=== PATIENT | female | born 1950 ===

== ENCOUNTER 2017-01-10 19:16 | Emergency (ER) | payer MEDICARE, OTHER ==
[2017-01-10 19:21] VITALS: RESP 16; TEMP 98.3; O2SAT 100
[2017-01-10 20:44] LABS: BASO # 0.1 K/uL (0.0-0.2); BASO % 1.2 % (0.0-2.0); EOS % 0.3 % (0.0-4.0); HEMATOCRIT 39.9 % (34.0-47.0); LYMPH # 1.2 K/uL (1.0-4.3); LYMPH % 13.3 % (20.0-40.0); MEAN CELL VOLUME 82.4 fl (81.0-99.0); MEAN CORPUSCULAR HEMOGLOBIN 26.6 pg (27.0-31.0); MEAN CORPUSCULAR HGB CONC 32.2 g/dL (33.0-37.0); MEAN PLATELET VOLUME 8.6 fl (7.2-11.7); MONO # 0.7 K/uL (0.0-0.8); MONO % 7.5 % (0.0-10.0); NEUT # 7.2 K/uL (1.8-7.0); NEUT % 77.7 % (50.0-75.0); RED CELL DISTRIBUTION WIDTH 14.1 % (11.5-14.5); WHITE BLOOD COUNT 9.3 K/uL (4.8-10.8)
[2017-01-10 20:59] LABS: ALB/GLOB RATIO 1.1 (1.0-2.1); ALKALINE PHOSPHATASE 83 U/L (38-126); ALT/SGPT 30 U/L (9-52); AST/SGOT 26 U/L (14-36); BILIRUBIN,TOTAL 0.4 mg/dl (0.2-1.3); BLOOD UREA NITROGEN 18 mg/dl (7-17); CALCIUM 10.2 mg/dL (8.4-10.2); CARBON DIOXIDE 27 mmol/L (22-30); CHLORIDE 101 mmol/L (98-107); GFR AFRICAN-AMERICAN > 60; GLUCOSE,RANDOM 109 mg/dL (65-105); MAGNESIUM 2.2 MG/DL (1.6-2.3); PHOSPHOROUS 2.1 mg/dl (2.5-4.5); POTASSIUM 4.2 MMOL/L (3.6-5.0); SODIUM 134 mmol/l (132-148); TOTAL PROTEIN 7.7 G/DL (6.3-8.2)
--- NOTE | 2017-01-10 22:28 | ED PDOC ---
HPI: Neurologic - General Time Seen by Provider: 01/10/17 19:30 Chief Complaint (Nursing): Dizziness/Lightheaded Chief Complaint (Provider): dizziness - History of Present Illness Allergies/Adverse Reactions: Allergies No Known Allergies Allergy (Verified 09/11/14 12:23) Home Medications: Ambulatory Orders Budesonide/Formoterol Fumarate [Symbicort 80-4.5 Mcg Inhaler] 18 aer IH DAILY Tiotropium [place] Inhaler [Spiriva Inhalation Handihaler Device] 1 inhaler INH DAILY 09/11/14 Valsartan/Hydrochlorothiazide [Valsartan-Hctz 320-12.5 mg Tab] 320 mg PO DAILY 09/11/14 Aspirin [Ecotrin] 81 mg PO DAILY #0 tabec 01/02/16 Past Medical History Vital Signs: Last Vital Signs Temp 98.3 F 01/10/17 19:18 Pulse 75 01/10/17 19:18 Resp 16 01/10/17 19:18 BP 139/87 01/10/17 19:18 Pulse Ox 100 01/10/17 19:18 - Medical History PMH: COPD, Emphysema, HTN Denies: Arthritis, CHF, Hypercholesterolemia, Hypothyroidism, Rheumatoid Arthritis - Home Medications Home Medications: Ambulatory Orders Medication Instructions Recorded Budesonide/Formoterol Fumarate 18 aer IH DAILY 09/11/14 [Symbicort 80-4.5 Mcg Inhaler] Tiotropium [place] Inhaler 1 inhaler INH DAILY 09/11/14 [Spiriva Inhalation Handihaler Device] Valsartan/Hydrochlorothiazide 320 mg PO DAILY 09/11/14 [Valsartan-Hctz 320-12.5 mg Tab] Aspirin [Ecotrin] 81 mg PO DAILY #0 tabec 01/02/16 - Allergies Allergies/Adverse Reactions: Allergies Allergy/AdvReac Type Severity Reaction Status Date / Time No Known Allergies Allergy Verified 09/11/14 12:23 - Laboratory Results Result Diagrams: 01/10/17 20:35 01/10/17 20:35 - ECG O2 Sat by Pulse Oximetry: 100 Disposition - Clinical Impression Clinical Impression: Dizziness Counseled Patient/Family Regarding: Studies Performed, Diagnosis - Disposition Referrals: Davy Bowens MD [Family Provider] - 01/13/17 Disposition: Routine/Home Disposition Time: 22:26 Condition: IMPROVED Additional Instructions: CONTINUE YOUR REGULAR MEDICATIONS PRESCRIBED RETURN TO ER FOR WORSENING SYMPTOMS Instructions: Vertigo (ED)
[2017-01-11 03:02] VITALS: BP 150/85; PULSE 72
--- NOTE | 2017-01-13 10:03 | CARD ---
APPROVED REPORT EKG Measurement Heart [id number] CA 160P70 [id number] <Conclusion> Normal sinus rhythm Normal ECG
== END 2017-01-10 22:35 | disposition home or self-care (01) ==
LOC: H.ER 19:16
DX: R42 Dizziness and giddiness (principal)

== ENCOUNTER 2018-04-24 07:21 | Day surgery (SDC) | payer MEDICARE, OTHER ==
[2018-04-24 08:57] VITALS: BMI 35.4
[2018-04-24] MEDS ORDERED: Lactated Ringer's 1,000 ML IV ONE (09:20)
[2018-04-24] MEDS ORDERED: Lactated Ringer's 500 ML IV ONE (09:35)
[2018-04-24 10:12] VITALS: BP 102/57; PULSE 52; RESP 14; TEMP 97; O2SAT 100
== END 2018-04-24 10:37 | disposition home or self-care (01) ==
LOC: H.ENDO 07:21
PROVIDERS: ATTEND Internal Medicine Gastroenterology
DX: K21.9 Gastro-esophageal reflux disease without esophagitis (principal); G47.33 Obstructive sleep apnea (adult) (pediatric); J44.9 Chronic obstructive pulmonary disease, unspecified; I10 Essential (primary) hypertension; R42 Dizziness and giddiness; K31.89 Other diseases of stomach and duodenum
CPT/HCPCS: 43239; 88305; J7120

== ENCOUNTER 2018-05-08 07:29 | Day surgery (SDC) | payer MEDICARE, OTHER ==
[2018-05-08] MEDS ORDERED: Lactated Ringer's 500 ML IV ONE (07:39)
[2018-05-08 07:59] VITALS: TEMP 96.9; O2SAT 100
[2018-05-08] MEDS ORDERED: Midazolam 2 MG/2 ML VIAL ONE (09:08)
[2018-05-08] MEDS ORDERED: Propofol 10 mg/ml Inj (20 ML) ONE (09:08)
[2018-05-08 09:44] VITALS: BP 120/65; PULSE 59; RESP 16
== END 2018-05-08 11:33 | disposition home or self-care (01) ==
LOC: H.ENDO 07:29
PROVIDERS: ATTEND Internal Medicine Gastroenterology
DX: Z12.11 Encounter for screening for malignant neoplasm of colon (principal); D12.5 Benign neoplasm of sigmoid colon; K64.0 First degree hemorrhoids

== ENCOUNTER 2018-07-07 10:59 | Emergency (ER) | payer MEDICARE ==
[2018-07-07 11:15] VITALS: BMI 34.9
--- NOTE | 2018-07-07 12:50 | ED PDOC ---
Lower Extremity Pain/Injury Time Seen by Provider: 07/07/18 11:52 Chief Complaint (Nursing): Lower Extremity Problem/Injury Chief Complaint (Provider): Lower Extremity Problem/Injury History Per: Patient History/Exam Limitations: no limitations Onset/Duration Of Symptoms: Days (30) Additional Complaint(s): 67 years old female with history of asthma, hypertension, COPD and kidney stones presents to the ED with one month of left leg pain and swelling. Patient reports she went to see her PMD, Dr. Davy Bowens, who recommended outpatient US, which she has not done yet. She states pain worsened last night extended from left posterior hip to left heel. Patient reports having sciatica before and states she feels somewhat like it. She states she is compliant with her medications and reports she is worried she might have blood clot. Patient denies any fever, shortness of breath, chest pain and diaphoresis. PMD: Dr. Davy Bowens Past Medical History Reviewed: Historical Data, Nursing Documentation, Vital Signs Vital Signs: Last Vital Signs Temp 97.6 F 07/07/18 11:13 Pulse 86 07/07/18 11:13 Resp 24 07/07/18 11:13 BP 144/81 07/07/18 11:13 Pulse Ox 98 07/07/18 11:13 - Medical History PMH: Asthma, COPD (Due to second hand smoke), Emphysema (Due to second hand smoke), HTN, Hypercholesterolemia, Kidney Stones, Sleep Apnea Denies: Arthritis, CHF, Hypothyroidism, Chronic Kidney Disease, Rheumatoid Arthritis - Surgical History Surgical History: Cholecystectomy - Family History Family History: States: Unknown Family Hx - Social History Current smoker - smoking cessation education provided: No Alcohol: None Drugs: Denies - Home Medications Home Medications: Ambulatory Orders Medication Instructions Recorded Budesonide/Formoterol Fumarate 18 aer IH DAILY 09/11/14 [Symbicort 80-4.5 Mcg Inhaler] Tiotropium [place] Inhaler 1 inhaler INH DAILY 09/11/14 [Spiriva Inhalation Handihaler Device] Valsartan/Hydrochlorothiazide 320 mg PO DAILY 09/11/14 [Valsartan-Hctz 320-12.5 mg Tab] Famotidine [Pepcid] 40 mg PO DAILY 04/24/18 Meclizine [Meclizine*] 25 mg PO DAILY 04/24/18 Simvastatin [Zocor] 20 mg PO DAILY 04/24/18 Naproxen 500 mg PO BID #14 tab 07/07/18 - Allergies Allergies/Adverse Reactions: Allergies Allergy/AdvReac Type Severity Reaction Status Date / Time No Known Allergies Allergy Verified 07/07/18 11:48 Review of Systems ROS Statement: Except As Marked, All Systems Reviewed And Found Negative Constitutional: Negative for: Fever, Sweats Cardiovascular: Negative for: Chest Pain Respiratory: Negative for: Shortness of Breath Musculoskeletal: Positive for: Leg Pain (left leg with swelling) Physical Exam - Reviewed Nursing Documentation Reviewed: Yes Vital Signs Reviewed: Yes - Physical Exam Appears: Positive for: Well, No Acute Distress Head Exam: Positive for: ATRAUMATIC, NORMOCEPHALIC Cardiovascular/Chest: Positive for: Regular Rate, Rhythm. Negative for: Murmur Respiratory: Positive for: Normal Breath Sounds. Negative for: Respiratory Distress Gastrointestinal/Abdominal: Positive for: Normal Exam, Soft. Negative for: Tenderness Extremity: Positive for: Normal ROM (of upper and lower extremities), Other ( Pain replicated on straight left leg. Distal pulses of 2+. ). Negative for: Tenderness (to palpation over joints), Deformity (or ecchymosis), Swelling ( obvious swelling to left leg) Neurologic/Psych: Positive for: Alert, Oriented (x3), Other (Patient ambulates without deficit). Negative for: Motor/Sensory Deficits - Laboratory Results Result Diagrams: 07/07/18 13:00 07/07/18 13:00 - ECG O2 Sat by Pulse Oximetry: 98 (RA) Pulse Ox Interpretation: Normal Medical Decision Making Medical Decision Making: Time: 1202 A/P: Workup for leg DVT --Left lower extremity US --Labs --Toradol for possible sciatica pain --Reassess patient 1354 Extremity US FINDINGS: COMMON FEMORAL VEIN: Right CFV: Unremarkable. Left CFV: Unremarkable. SUPERFICIAL FEMORAL VEIN: Right SFV: Unremarkable. Left SFV: Unremarkable. POPLITEAL VEIN: Right Popliteal: Unremarkable. Left Popliteal: Unremarkable. POSTERIOR TIBIAL VEIN: Right PTV: Unremarkable. Left PTV: Unremarkable. OTHER FINDINGS: None. IMPRESSION: No evidence of deep venous thrombosis. 1414 Chest x-ray shows no acute injury, patient reports improvement of symptoms. 1444 US and labs reviewed and within normal limits. 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 Instructions given for possible rotator cuff injury. Return if symptoms persist or worsen. ----- Scribe Attestation: Documented by Heather Turner, acting as a scribe for Nelsy Newman MD. Provider Scribe Attestation: All medical record entries made by the Scribe were at my direction and personally dictated by me. I have reviewed the chart and agree that the record accurately reflects my personal performance of the history, physical exam, medical decision making, and the department course for this patient. I have also personally directed, reviewed, and agree with the discharge instructions and disposition. Disposition - Clinical Impression Clinical Impression: Leg pain, bilateral - Disposition Disposition: Routine/Home Disposition Time: 14:44 Condition: IMPROVED Additional Instructions: Take Naproxen as prescribed for pain. Follow up with primary medical doctor for workup for sciatica vs possible neurologic pain. The ultrasound today and your lab work did not show any signs of blood clots or infection. Return to the emergency department if symptoms worsen or if new symptoms worsen. Prescriptions: Naproxen 500 mg PO BID #14 tab Instructions: Sciatica, Radiculopathy, Sciatica (DC), Radiculopathy (DC) Forms: [employer] (Scottish), [employer] (Sudanese) Print Language: HEBREW
[2018-07-07 13:28] LABS: BASO # 0.1 K/uL (0.0-0.2); BASO % 1.1 % (0.0-2.0); EOS % 0.1 % (0.0-4.0); LYMPH # 1.1 K/uL (1.0-4.3); LYMPH % 12.8 % (20.0-40.0); MEAN CELL VOLUME 82.7 fl (81.0-99.0); MEAN CORPUSCULAR HEMOGLOBIN 27.9 pg (27.0-31.0); MEAN CORPUSCULAR HGB CONC 33.7 g/dL (33.0-37.0); MEAN PLATELET VOLUME 8.7 fl (7.2-11.7); MONO # 0.4 K/uL (0.0-0.8); MONO % 5.1 % (0.0-10.0); NEUT # 6.7 K/uL (1.8-7.0); NEUT % 80.9 % (50.0-75.0); NRBC % 0.1 % (0.0-0.0); RBC 5.03 Mil/uL (3.80-5.20); RED CELL DISTRIBUTION WIDTH 13.5 % (11.5-14.5); WHITE BLOOD COUNT 8.2 K/uL (4.8-10.8)
[2018-07-07 13:43] LABS: BLOOD UREA NITROGEN 12 mg/dl (7-17); CALCIUM 10.6 mg/dL (8.4-10.2); GFR NON-AFRICAN AMERICAN > 60
--- NOTE | 2018-07-07 13:56 | US ---
Date of service: 07/07/2018 PROCEDURE: Bilateral lower extremity venous duplex Doppler. HISTORY: BL leg pain and swelling r/o dvt COMPARISON: None available. TECHNIQUE: Bilateral common femoral, superficial femoral, popliteal and posterior tibial veins were evaluated. Flow was assessed with color Doppler, compressibility, assessment of phasic flow and augmentation response. FINDINGS: COMMON FEMORAL VEIN: Right CFV: Unremarkable. Left CFV: Unremarkable. SUPERFICIAL FEMORAL VEIN: Right SFV: Unremarkable. Left SFV: Unremarkable. POPLITEAL VEIN: Right Popliteal: Unremarkable. Left Popliteal: Unremarkable. POSTERIOR TIBIAL VEIN: Right PTV: Unremarkable. Left PTV: Unremarkable. OTHER FINDINGS: None. IMPRESSION: No evidence of deep venous thrombosis.
[2018-07-07] MEDS ORDERED: Naproxen 500 MG TAB PO STA (14:36)
[2018-07-07] MEDS ORDERED: Naproxen 500 MG TAB PO ONE (14:51)
[2018-07-07 15:26] VITALS: BP 133/55; PULSE 58; RESP 18; TEMP 98.2
--- NOTE | 2018-07-07 18:58 | CARD ---
APPROVED REPORT Date of service: 07/07/2018 <Conclusion> Sinus bradycardia Otherwise normal ECG
[2018-07-07 23:55] VITALS: O2SAT 98
== END 2018-07-07 15:26 | disposition home or self-care (01) ==
LOC: H.ER 10:59
DX: M79.605 Pain in left leg (principal); M79.606 Pain in leg, unspecified; R60.0 Localized edema; E78.00 Pure hypercholesterolemia, unspecified; I10 Essential (primary) hypertension; J44.9 Chronic obstructive pulmonary disease, unspecified

== ENCOUNTER 2018-08-11 12:38 | Observation (INO) | payer MEDICARE, OTHER ==
[2018-08-11 12:39] VITALS: BMI 34.9
--- NOTE | 2018-08-11 13:45 | ED PDOC ---
HPI:STROKE - Time Time: 13:30 - Historian Historian: Patient - Chief Complaint Chief Complaint: Weakness - Onset Date: 08/08/18 Time: 09:00 - TPA Positive for Contraindication: Yes Reason tPA is not being Administered: out of window of time and nih 0 - Notes: Notes:: Pt. started dexamethasone for sciatic pain Fri. Friday she started having flushing, feeling hot and redness all over. It would go away and then come the next day. She has finished her dose which was for 5 days. Today she had the symptoms and got chest tightness so came to the ER. Has dizziness, near syncope today as well. Yesterday noted some itching and redness to the chest and arms which as improved, with some left on right arm. No dyspnea, headaches, neck pain. Feels blurry vision. No leg pain. No numbness, tingles. No cough. Is on gabapentin for several weeks for the pain also. Neurology: Dr. Long. PCP: Dr. Huertas. NIHSS Stroke Scale - Date/Time Evaluation Performed Date Performed: 08/11/18 Time Performed: 13:00 When Was NIHSS Performed: Baseline - How Severe is the Stroke Level of Consciousness: 0=Alert LOC to Questions: 0=Both comments correct LOC to commands: 0=Obeys both correctly Best Gaze: 0=Normal Visual: 0=No visual loss Facial: 0=Normal Motor Arm - Left: 0=No drift Motor Arm - Right: 0=No drift Motor Leg - Left: 0=No drift Motor Leg - Right: 0=No drift Limb Ataxia: 0=Absent Sensory: 0=Normal Best Language: 0=No aphasia Dysarthia: 0=Normal articulation Extinction & Inattention (Neglect): 0=Normal, no object Score: 0 rTPA Inclusion/Exclusion - Refusal of Treatment Patient Refused Treatment: No - Inclusion Criteria for Altepase Patient is 18 years or Older: Yes The Clinical Diagnosis of Ischemic Stroke That is Causing a Potentially Disabling Neurological Deficit: No Time of Onset is Well Established to be Less Than 270 Minute Before Treatment Would Begin: No Risk/Benefit Discussed With Patient/Family Member Present: No Past Medical History Vital Signs: Last Vital Signs Temp 97.9 F 08/11/18 12:44 Pulse 63 08/11/18 12:44 Resp 16 08/11/18 12:44 BP 135/76 08/11/18 12:44 Pulse Ox 100 08/11/18 12:44 - Medical History PMH: Asthma, Back Problems, COPD (Due to second hand smoke), Emphysema (Due to second hand smoke), HTN, Hypercholesterolemia, Sleep Apnea, Chronic Pain Denies: Arthritis, CHF, Hypothyroidism, Chronic Kidney Disease, Rheumatoid Arthritis - Surgical History Surgical History: Cholecystectomy - Family History Family History: States: Unknown Family Hx - Home Medications Home Medications: Ambulatory Orders Medication Instructions Recorded Albuterol Sulfate [Ventolin Hfa] 2 puff IH Q6 PRN 08/11/18 Albuterol/Ipratropium [Duoneb 3 3 ml IH Q4 PRN 08/11/18 mg/0.5 mg (3 ml) UD] Budesonide/Formoterol Fumarate 2 puff IH Q12 08/11/18 [Symbicort 160-4.5 Mcg Inhaler] Cyanocobalamin [Vitamin B12 1000 1 tab PO DAILY 08/11/18 mcg Tab] Dexlansoprazole [Dexilant] 60 mg PO Q48H 08/11/18 Ergocalciferol (Vitamin D2) 50,000 unit PO SAT 08/11/18 [Vitamin D2] Gabapentin [Neurontin] 100 mg PO Q8 08/11/18 Losartan/Hydrochlorothiazide 1 tab PO DAILY 08/11/18 [Hyzaar 100-25 Tablet] Meloxicam [Mobic] 15 mg PO DAILY PRN 08/11/18 Simvastatin [Zocor] 20 mg PO HS 08/11/18 Umeclidinium [place] [Incruse 1 puff IH DAILY 08/11/18 Ellipta] traMADol [Ultram] 50 mg PO Q8 PRN 08/11/18 - Allergies Allergies/Adverse Reactions: Allergies Allergy/AdvReac Type Severity Reaction Status Date / Time dexamethasone Allergy RASH Verified 08/11/18 12:45 Review of Systems ROS Statement: Except As Marked, All Systems Reviewed And Found Negative Constitutional: Positive for: Weakness (diffuse) Cardiovascular: Positive for: Chest Pain, Light Headedness Skin: Positive for: Rash Neurological: Positive for: Weakness, Dizziness Physical Exam - Reviewed Nursing Documentation Reviewed: Yes Vital Signs Reviewed: Yes - Physical Exam Appears: Positive for: Non-toxic, No Acute Distress Head Exam: Positive for: ATRAUMATIC, NORMAL INSPECTION, NORMOCEPHALIC Skin: Positive for: Normal Color, Warm, DRY Eye Exam: Positive for: EOMI, Normal appearance, PERRL ENT: Positive for: Normal ENT Inspection. Negative for: Nasal Congestion Neck: Positive for: Normal, Painless ROM Cardiovascular/Chest: Positive for: Regular Rate, Rhythm, Edema Respiratory: Positive for: CNT, Normal Breath Sounds Gastrointestinal/Abdominal: Positive for: Normal Exam, Soft. Negative for: Tenderness Back: Positive for: Normal Inspection. Negative for: L CVA Tenderness, R CVA Tenderness Extremity: Positive for: Normal ROM, Other (R arm with abrasions on forearm from scratching). 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 Negative for: Motor/Sensory Deficits, Aphasia, Facial Droop - Laboratory Results Result Diagrams: 08/11/18 14:16 08/11/18 14:16 Interpretation Of Abn Labs: 14.8 wbc - ECG ECG: Positive for: Interpreted By Me, Viewed By Me ECG Rhythm: Positive for: Normal QRS, Normal ST Segment, Sinus Rhythm O2 Sat by Pulse Oximetry: 100 Pulse Ox Interpretation: Normal - Radiology X-Ray: Read By Radiologist X-Ray Interpretation: No Acute Disease - CT Scan/US head Other Rad Studies (CT/US): Read By Radiologist Other Rad Interpretation: no acute - Progress ED Course And Treament: 1555: Stable. Spoke with Salas Castillo Will admit to his service. PCP Dr. Huertas. Pt. with no chest pain. Has some dizziness still. Spoke with dr. Gannon who agrees to admit. Disposition - Clinical Impression Clinical Impression: Chest pain, Dizziness - Patient ED Disposition Is Patient to be Admitted: Yes Counseled Patient/Family Regarding: Studies Performed, Diagnosis - Disposition Disposition Time: 15:59 Condition: FAIR - Pt Status Changed To: Hospital Disposition Of: Observation - POA Present On Arrival: None
--- NOTE | 2018-08-11 14:07 | CT ---
Date of service: 08/11/2018 PROCEDURE: CT HEAD WITHOUT CONTRAST. HISTORY: Syncope. COMPARISON: 12/31/2015. TECHNIQUE: Axial computed tomography images were obtained through the head/brain without intravenous contrast. Supplemental Coronal and Sagittal projections created and reviewed. Radiation dose: Total exam DLP = 833.03 mGy-cm. This CT exam was performed using one or more of the following dose reduction techniques: Automated exposure control, adjustment of the mA and/or kV according to patient size, and/or use of iterative reconstruction technique. FINDINGS: HEMORRHAGE: No intracranial hemorrhage. BRAIN: No mass effect or edema. No atrophy or chronic microvascular ischemic changes. VENTRICLES: Unremarkable. No hydrocephalus. CALVARIUM: Unremarkable. PARANASAL SINUSES: Unremarkable as visualized. No significant inflammatory changes. MASTOID AIR CELLS: Unremarkable as visualized. No inflammatory changes. OTHER FINDINGS: None. IMPRESSION: No acute intracranial abnormalities. No significant findings to account for the clinical presentation. No significant interval change compared to the prior examination(s).
[2018-08-11 14:22] LABS: BASO % 0.3 % (0.0-2.0); EOS % 0.3 % (0.0-4.0); LYMPH # 1.9 K/uL (1.0-4.3); MEAN CELL VOLUME 82.5 fl (81.0-99.0); MEAN CORPUSCULAR HEMOGLOBIN 27.2 pg (27.0-31.0); MEAN PLATELET VOLUME 8.5 fl (7.2-11.7); MONO # 1.2 K/uL (0.0-0.8); MONO % 7.9 % (0.0-10.0); NEUT # 11.7 K/uL (1.8-7.0); NEUT % 78.5 % (50.0-75.0); NRBC % 0.2 % (0.0-0.0); RBC 5.49 Mil/uL (3.80-5.20); RED CELL DISTRIBUTION WIDTH 14.1 % (11.5-14.5); WHITE BLOOD COUNT 14.8 K/uL (4.8-10.8)
[2018-08-11 14:26] LABS: PROTHROMBIN TIME 10.9 Seconds (9.8-13.1)
[2018-08-11 14:30] LABS: PARTIAL THROMBOPLASTIN TIME 21.2 Seconds (25.6-37.1)
[2018-08-11 14:35] LABS: BLOOD UREA NITROGEN 20 mg/dl (7-17); CALCIUM 10.6 mg/dL (8.4-10.2); GFR NON-AFRICAN AMERICAN 55; HDL CHOLESTEROL 66 MG/DL (30-70)
[2018-08-11 14:36] LABS: ALBUMIN 3.9 g/dL (3.5-5.0); ALT/SGPT 46 U/L (9-52); AST/SGOT 54 U/L (14-36)
[2018-08-11] MEDS: Sodium Chloride 0.9% 1,000 ML IV SCH ×2 (14:38→22:54)
[2018-08-11 14:45] LABS: LDL CHOLESTEROL 96 mg/dL (0-129)
--- NOTE | 2018-08-11 15:22 | RAD ---
Date of service: 08/11/2018 HISTORY: Code Stroke COMPARISON: Chest radiographs 09/04/2017. FINDINGS: LUNGS: No active pulmonary disease. PLEURA: No significant pleural effusion identified, no pneumothorax apparent. CARDIOVASCULAR: Normal. OSSEOUS STRUCTURES: No significant abnormalities. VISUALIZED UPPER ABDOMEN: Normal. OTHER FINDINGS: None. IMPRESSION: No interval acute cardiopulmonary disease appreciated.
--- NOTE | 2018-08-11 15:41 | CARD ---
APPROVED REPORT Date of service: 08/11/2018 EKG Measurement Heart [id number] CT 162P68 [id number] <Conclusion> Normal sinus rhythm Normal Electrocardiogram
--- NOTE | 2018-08-11 17:09 | CP.PCM.HP ---
History of Present Illness - History of Present Illness History of Present Illness: Pt is a 67 yo F w. pmhx of vertigo, HTN, COPD-Emphysema, Asthma, kidney stone, sleep apnea, HLD admitted for chest tightness and dizziness. Pt stated that today she was going to her Neurologists office when she was walking there she started experiencing chest tightness, SOB, diaphoresis blurry vision and felt off balance. After her appt she felt the same symptoms walking home, when she got to her building she had a syncopal event her friend found her on the floor sweating. Pt is unsure if she was shaking, denies any urinary or fecal incontinence. Pt daughter states she has had 2 episodes before of falling in the past. Pt was recently started on Dexamethasone for sciatica on day 5, complaining of itching on her right arm. Currently patients chest tightness has resolved and she is no longer SOB. Pt denies wheezing, she was taking all of her medications today as scheduled. Neurology: Dr. Long. PCP: Dr. Huertas. Present on Admission - Present on Admission Any Indicators Present on Admission: No History of DVT/PE: No History of Uncontrolled Diabetes: No Urinary Catheter: No Decubitus Ulcer Present: No Review of Systems - Constitutional Constitutional: Excessive Sweating, Frequent Falls, Sleep Apnea, Weakness - EENT Eyes: Blurred Vision - Cardiovascular Cardiovascular: Chest Pain, Diaphoresis, Dyspnea, Palpitations - Respiratory Respiratory: Dyspnea - Neurological Neurological: Dizziness, Syncope, Vertigo, Weakness Past Patient History - Infectious Disease Hx of Infectious Diseases: None - Past Medical History & Family History Past Medical History?: Yes - Past Social History Smoking Status: Never Smoked Alcohol: None Drugs: Denies - CARDIAC Hx Congestive Heart Failure: No Hx Hypercholesterolemia: Yes Hx Hypertension: Yes - PULMONARY Hx Asthma: Yes Hx Chronic Obstructive Pulmonary Disease (COPD): Yes (Due to second hand smoke) Hx Emphysema: Yes (Due to second hand smoke) Hx Sleep Apnea: Yes - NEUROLOGICAL Hx Neurological Disorder: Yes Hx Vertigo: Yes - HEENT Hx HEENT Problems: No - RENAL Hx Chronic Kidney Disease: No - ENDOCRINE/METABOLIC Hx Hypothyroidism: No - HEMATOLOGICAL/ONCOLOGICAL Hx Blood Disorders: No - INTEGUMENTARY Hx Dermatological Problems: No Other/Comment: Lump and mole removed from the back. - MUSCULOSKELETAL/RHEUMATOLOGICAL Hx Arthritis: No Hx Rheumatoid Arthritis: No - GASTROINTESTINAL Hx Gastrointestinal Disorders: No - GENITOURINARY/GYNECOLOGICAL Hx Genitourinary Disorders: No Other/Comment: Hysterectomy. - PSYCHIATRIC Hx Psychophysiologic Disorder: No Hx Emotional Abuse: No Hx Physical Abuse: No Hx Substance Use: No - SURGICAL HISTORY Hx Cholecystectomy: Yes - ANESTHESIA Hx Anesthesia: Yes Hx Anesthesia Reactions: No Hx Malignant Hyperthermia: No Meds Allergies/Adverse Reactions: Allergies Allergy/AdvReac Type Severity Reaction Status Date / Time dexamethasone Allergy RASH Verified 08/11/18 12:45 Physical Exam - Constitutional Appears: Non-toxic, No Acute Distress - Head Exam Head Exam: ATRAUMATIC, NORMAL INSPECTION, NORMOCEPHALIC - Eye Exam Eye Exam: EOMI, Normal appearance, PERRL - ENT Exam ENT Exam: Mucous Membranes Moist, Normal Exam - Respiratory Exam Respiratory Exam: Clear to Auscultation Bilateral, NORMAL BREATHING PATTERN - Cardiovascular Exam Cardiovascular Exam: RRR, +S1, +S2 - GI/Abdominal Exam GI & Abdominal Exam: Normal Bowel Sounds, Soft - Neurological Exam Neurological exam: Alert, Oriented x3 Results - Vital Signs Recent Vital Signs: Last Vital Signs Temp 98 F 08/11/18 13:35 Pulse 59 L 08/11/18 13:35 Resp 18 08/11/18 13:35 BP 176/74 H 08/11/18 13:35 Pulse Ox 100 08/11/18 15:59 - Labs Result Diagrams: 08/11/18 14:16 08/11/18 14:16 Labs: Laboratory Results - last 24 hr 08/11/18 08/11/18 08/11/18 12:56 14:16 14:16 WBC 14.8 H D RBC 5.49 H Hgb 15.0 Hct 45.3 MCV 82.5 MCH 27.2 MCHC 33.0 RDW 14.1 Plt Count 267 MPV 8.5 Neut % (Auto) 78.5 H Lymph % (Auto) 13.0 L [place] % (Auto) 7.9 Eos % (Auto) 0.3 Baso % (Auto) 0.3 Neut # (Auto) 11.7 H Lymph # (Auto) 1.9 [place] # (Auto) 1.2 H Eos # (Auto) 0.0 Baso # (Auto) 0.0 PT INR APTT Sodium 135 Potassium 3.9 Chloride 99 Carbon Dioxide 30 Anion Gap 10 BUN 20 H Creatinine 1.0 Est GFR ( Amer) > 60 Est GFR (Non-Af Amer) 55 POC Glucose (mg/dL) 105 Random Glucose 97 Calcium 10.6 H Total Bilirubin 0.9 AST 54 H D ALT 46 Alkaline Phosphatase 80 Troponin I < 0.0120 Total Protein 7.8 Albumin 3.9 Globulin 3.9 Albumin/Globulin Ratio 1.0 Triglycerides 192 H D Cholesterol 186 LDL Cholesterol Direct 96 HDL Cholesterol 66 Blood Type Antibody Screen BBK History Checked 08/11/18 08/11/18 14:16 14:18 WBC RBC Hgb Hct MCV MCH MCHC RDW Plt Count MPV Neut % (Auto) Lymph % (Auto) [place] % (Auto) Eos % (Auto) Baso % (Auto) Neut # (Auto) Lymph # (Auto) [place] # (Auto) Eos # (Auto) Baso # (Auto) PT 10.9 INR 1.0 APTT 21.2 L Sodium Potassium Chloride Carbon Dioxide Anion Gap BUN Creatinine Est GFR ( Amer) Est GFR (Non-Af Amer) POC Glucose (mg/dL) Random Glucose Calcium Total Bilirubin AST ALT Alkaline Phosphatase Troponin I Total Protein Albumin Globulin Albumin/Globulin Ratio Triglycerides Cholesterol LDL Cholesterol Direct HDL Cholesterol Blood Type O NEGATIVE Antibody Screen Negative BBK History Checked Patient has bt Assessment & Plan - Assessment and Plan (Free Text) Plan: Pt is a 67 yo F w. pmhx of vertigo, HTN, COPD-Emphysema, Asthma, kidney stone, sleep apnea, HLD admitted for chest tightness and dizziness. 1. Chest pain -r/o ACS -F/u CT chest angio with PE protocol -F/u Echo -Orthostatics -EKG-Normal -CXR- Normal -troponin x1 negative -F/u 2nd Troponin -TSH, Free T4 ordered, F/u -[id number] -CBC w Diff, CMP f/u 2. Syncope Unspecified -r/o PE vs cardiac arrythmia -Orthostatic vitals -F/u Echo -CT head without contrast normal 3. HTN -Continue with HCTZ 25mg -Continue with Losartan 100mg 4. COPD -Continue with home meds 5. Hyperlipidemia -Lipid profile reviewed -Continue Atorvastatin 6. Leukocytosis -Possibly secondary to dexamethasone 7. Hx of Neuropathy -Gabapentin 8. DVT PPX -Lovenox 9. Rescusitation status -Full code
[2018-08-11] MEDS ORDERED: Iodixanol 320 MG/ML 100 ML BOTTLE IV ONE (17:52)
[2018-08-11] MEDS ORDERED: Sodium Chloride 0.9% 50 ML IV ONE (17:52)
--- NOTE | 2018-08-11 18:44 | CT ---
Date of service: 08/11/2018 CTA chest PE protocol Indication: syncope.SOB Technique: Contiguous axial images were obtained through the chest with intravenous contrast enhancement. Sagittal and coronal reconstructions were generated and reviewed. This CT exam was performed using 1 or more of the following dose reduction techniques: Automated exposure control, adjustment of the MAA and/or kV according to patient size, and/or use of iterative reconstruction technique. IV contrast: 90 mL Visipaque 320 Radiation dose (DLP): 368.12 MGy-cm. Comparison: Chest x-ray performed 08/11/18, CT chest without contrast performed 07/06/14 Findings: Visualized portions of the inferior thyroid gland appear unremarkable. The mediastinal and hilar vascular structures appear within normal limits. The heart appears within normal limits of size. Mild atherosclerotic calcification of the aorta. No large central or segmental pulmonary embolus evident. Mild bibasilar atelectasis. No focal consolidation. No pleural effusion. No pneumothorax. Stable 3 mm left upper lobe pulmonary nodule (series 5, image 15). Limited visualized portions of the upper abdomen: Cholecystectomy clips. Left adrenal gland hypertrophy. No acute osseous abnormality is detected. Impression: No large central or segmental pulmonary embolus identified. Stable 3 mm left upper lobe pulmonary nodule.
[2018-08-11 20:37] LABS: SQUAMOUS EPITHIAL < 1 /hpf (0-5); URINE BILIRUBIN NEGATIVE (NEGATIVE); URINE BLOOD NEGATIVE (NEGATIVE); URINE CLARITY CLEAR (Clear); URINE COLOR YELLOW (YELLOW); URINE GLUCOSE (UA) NEG (Normal); URINE LEUKOCYTE ESTERASE NEG Leu/uL (Negative); URINE PROTEIN NEGATIVE (NEGATIVE); URINE UROBILINOGEN 0.2-1.0 mg/dL (0.2-1.0)
[2018-08-12 05:27] LABS: BASO % 0.1 % (0.0-2.0); EOS # 0.1 K/uL (0.0-0.7); EOS % 0.9 % (0.0-4.0); HEMOGLOBIN 12.7 g/dL (12.0-16.0); LYMPH # 2.2 K/uL (1.0-4.3); LYMPH % 27.7 % (20.0-40.0); MEAN CELL VOLUME 82.5 fl (81.0-99.0); MEAN CORPUSCULAR HEMOGLOBIN 27.7 pg (27.0-31.0); MEAN CORPUSCULAR HGB CONC 33.6 g/dL (33.0-37.0); MEAN PLATELET VOLUME 8.4 fl (7.2-11.7); MONO # 0.7 K/uL (0.0-0.8); MONO % 8.7 % (0.0-10.0); NEUT % 62.6 % (50.0-75.0); RBC 4.58 Mil/uL (3.80-5.20); RED CELL DISTRIBUTION WIDTH 13.9 % (11.5-14.5); WHITE BLOOD COUNT 7.9 K/uL (4.8-10.8)
[2018-08-12 05:54] LABS: ALB/GLOB RATIO 1.1 (1.0-2.1); ALT/SGPT 44 U/L (9-52); AST/SGOT 22 U/L (14-36); BLOOD UREA NITROGEN 19 mg/dl (7-17); CALCIUM 9.5 mg/dL (8.4-10.2); GFR NON-AFRICAN AMERICAN 55
[2018-08-12] MEDS ORDERED: Pneumococcal 23-Valent Vaccine IM ONE (06:00)
[2018-08-12] MEDS ORDERED: Influenza Vaccine (5 YR UP)/PF 60 MCG/0.5 ML SYR IM ONE (06:00)
[2018-08-12 08:16] VITALS: RESP 20
[2018-08-12] MEDS: Sodium Chloride 0.9% 1,000 ML IV SCH (08:43)
[2018-08-12] MEDS ORDERED: Enoxaparin 40 mg Syringe SC SCH (09:00)
[2018-08-12] MEDS ORDERED: Patient's Own Med (Losartan/Hydrochlorothiazide [Hyzaar 100-25 Tablet] 1 TAB) PO SCH (09:00)
--- NOTE | 2018-08-12 10:13 | CP.PCM.PN ---
Subjective - Date & Time of Evaluation Date of Evaluation: 08/12/18 Time of Evaluation: 10:13 Objective - Vital Signs/Intake and Output Vital Signs (last 24 hours): Temp Pulse Resp BP Pulse Ox 98.0 F 110 H 20 129/78 98 08/12/18 08:00 08/12/18 09:00 08/12/18 08:00 08/12/18 08:44 08/12/18 08:00 - Medications Medications: Current Medications Acetaminophen (Tylenol 325mg Tab) 650 mg PO Q6 PRN PRN Reason: Pain, Mild (1-3) Acetaminophen (Tylenol 325mg Tab) 650 mg PO Q6 PRN PRN Reason: Fever >100.4 F Atorvastatin Calcium (Lipitor) 20 mg PO HS HAIR Enoxaparin Sodium (Lovenox) 40 mg SC DAILY [facility]; Protocol Last Admin: 08/12/18 08:46 Dose: 40 mg Gabapentin (Neurontin) 100 mg PO Q8 [facility] Last Admin: 08/12/18 08:45 Dose: 100 mg Hydrochlorothiazide (Hydrodiuril) 25 mg PO DAILY [facility] Last Admin: 08/12/18 08:44 Dose: 25 mg Sodium Chloride (Sodium Chloride 0.9%) 1,000 mls @ 100 mls/hr IV .Q10H [facility] Last Admin: 08/12/18 08:43 Dose: 100 mls/hr Losartan Potassium (Cozaar) 100 mg PO DAILY [facility] Last Admin: 08/12/18 08:44 Dose: 100 mg - Labs Labs: 08/12/18 04:20 08/12/18 04:20 PT 10.9 Seconds (9.8-13.1) 08/11/18 14:16 INR 1.0 08/11/18 14:16 APTT 21.2 Seconds (25.6-37.1) L 08/11/18 14:16
--- NOTE | 2018-08-12 10:15 | CP.PCM.DIS ---
<Starr Franklin - Last Filed: 08/12/18 16:47> Provider - Provider Date of Admission: 08/11/18 15:56 Attending physician: Myron Moses Primary care physician: Dr. Bowens. Consults: Dr. Andrew- Cardiology Time Spent in preparation of Discharge (in minutes): 15 Diagnosis - Discharge Diagnosis (1) Chest pain Status: Acute Comment: -Pts chest pain likely non cardiac per cardiology. -Cardiac workup completed unremarkable. -F/u as outpt. -Continue BP meds (2) Dizziness Status: Acute Comment: -Head CT negative. -F/u with Neurology as outpt for further workup (3) Syncope and collapse Status: Acute Comment: -F/u as outpt with Neurology. -CT head without contrast normal (4) Hypertension Status: Acute Comment: -Continue with BP meds (5) COPD (chronic obstructive pulmonary disease) with emphysema Status: Chronic Priority: Low Comment: Continue with home meds (6) Hyperlipidemia Status: Acute Comment: Continue Atorvastatin (7) Leukocytosis Status: Acute Comment: Resolved possibly secondary to dexamethasone (8) Leg pain, bilateral Status: Acute Comment: -Continue Gabapentin Hospital Course - Lab Results Lab Results: Most Recent Lab Values WBC 7.9 K/uL (4.8-10.8) 08/12/18 04:20 RBC 4.58 Mil/uL (3.80-5.20) 08/12/18 04:20 Hgb 12.7 g/dL (12.0-16.0) D 08/12/18 04:20 Hct 37.8 % (34.0-47.0) 08/12/18 04:20 MCV 82.5 fl (81.0-99.0) 08/12/18 04:20 MCH 27.7 pg (27.0-31.0) 08/12/18 04:20 MCHC 33.6 g/dL (33.0-37.0) 08/12/18 04:20 RDW 13.9 % (11.5-14.5) 08/12/18 04:20 Plt Count 234 K/uL (130-400) 08/12/18 04:20 MPV 8.4 fl (7.2-11.7) 08/12/18 04:20 Neut % (Auto) 62.6 % (50.0-75.0) 08/12/18 04:20 Lymph % (Auto) 27.7 % (20.0-40.0) 08/12/18 04:20 [place] % (Auto) 8.7 % (0.0-10.0) 08/12/18 04:20 Eos % (Auto) 0.9 % (0.0-4.0) 08/12/18 04:20 Baso % (Auto) 0.1 % (0.0-2.0) 08/12/18 04:20 Neut # (Auto) 5.0 K/uL (1.8-7.0) 08/12/18 04:20 Lymph # (Auto) 2.2 K/uL (1.0-4.3) 08/12/18 04:20 [place] # (Auto) 0.7 K/uL (0.0-0.8) 08/12/18 04:20 Eos # (Auto) 0.1 K/uL (0.0-0.7) 08/12/18 04:20 Baso # (Auto) 0.0 K/uL (0.0-0.2) 08/12/18 04:20 PT 10.9 Seconds (9.8-13.1) 08/11/18 14:16 INR 1.0 08/11/18 14:16 APTT 21.2 Seconds (25.6-37.1) L 08/11/18 14:16 Sodium 138 mmol/l (132-148) 08/12/18 04:20 Potassium 4.1 MMOL/L (3.6-5.0) 08/12/18 04:20 Chloride 106 mmol/L (98-107) 08/12/18 04:20 Carbon Dioxide 30 mmol/L (22-30) 08/12/18 04:20 Anion Gap 6 (10-20) L 08/12/18 04:20 BUN 19 mg/dl (7-17) H 08/12/18 04:20 Creatinine 1.0 mg/dl (0.7-1.2) 08/12/18 04:20 Est GFR ( Amer) > 60 08/12/18 04:20 Est GFR (Non-Af Amer) 55 08/12/18 04:20 POC Glucose (mg/dL) 128 mg/dL (65-110) H 08/11/18 19:17 Random Glucose 95 mg/dL (65-105) 08/12/18 04:20 Hemoglobin A1c 6.0 % (4.2-6.5) 08/11/18 14:16 Calcium 9.5 mg/dL (8.4-10.2) 08/12/18 04:20 Total Bilirubin 0.6 mg/dl (0.2-1.3) 08/12/18 04:20 AST 22 U/L (14-36) 08/12/18 04:20 ALT 44 U/L (9-52) 08/12/18 04:20 Alkaline Phosphatase 64 U/L (38-126) 08/12/18 04:20 Troponin I < 0.0120 ng/mL (0.00-0.120) 08/11/18 19:48 Total Protein 5.8 G/DL (6.3-8.2) L 08/12/18 04:20 Albumin 3.0 g/dL (3.5-5.0) L D 08/12/18 04:20 Globulin 2.8 gm/dL (2.2-3.9) 08/12/18 04:20 Albumin/Globulin Ratio 1.1 (1.0-2.1) 08/12/18 04:20 Triglycerides 192 mg/DL (0-149) H D 08/11/18 14:16 Cholesterol 186 mg/dL (0-199) 08/11/18 14:16 LDL Cholesterol Direct 96 mg/dL (0-129) 08/11/18 14:16 HDL Cholesterol 66 MG/DL (30-70) 08/11/18 14:16 Free T4 1.32 ng/dL (0.78-2.19) 08/11/18 19:45 TSH 3rd Generation 4.86 mIU/ML (0.46-4.68) H 08/11/18 19:46 Urine Color Yellow (YELLOW) 08/11/18 20:31 Urine Clarity Clear (Clear) 08/11/18 20:31 Urine pH 6.0 (5.0-8.0) 08/11/18 20:31 Ur Specific [place] 1.057 (1.003-1.030) H 08/11/18 20:31 Urine Protein Negative mg/dL (NEGATIVE) 08/11/18 20:31 Urine Glucose (UA) Neg mg/dL (Normal) 08/11/18 20:31 Urine Ketones Negative mg/dL (NEGATIVE) 08/11/18 20:31 Urine Blood Negative (NEGATIVE) 08/11/18 20:31 Urine Nitrate Negative (NEGATIVE) 08/11/18 20:31 Urine Bilirubin Negative (NEGATIVE) 08/11/18 20:31 Urine Urobilinogen 0.2-1.0 mg/dL (0.2-1.0) 08/11/18 20:31 Ur Leukocyte Esterase Neg Jeancarlos/uL (Negative) 08/11/18 20:31 Urine RBC (Auto) 1 /hpf (0-3) 08/11/18 20:31 Urine Microscopic WBC 1 /hpf (0-5) 08/11/18 20:31 Ur Squamous Epith Cells < 1 /hpf (0-5) 08/11/18 20:31 Blood Type O NEGATIVE 08/11/18 14:18 Antibody Screen Negative 08/11/18 14:18 BBK History Checked Patient has bt 08/11/18 14:18 - Hospital Course Hospital Course: Pt is a 67 yo F w. pmhx of vertigo, HTN, COPD-Emphysema, Asthma, kidney stone, sleep apnea, HLD admitted to ED on 08/11/18 for chest tightness, dizziness, and syncope. Pt stated that today she was going to her neurologists office (Dr. Long) when she was walking there she started experiencing chest tightness, SOB, diaphoresis blurry vision and felt off balance. After her appt she felt the same symptoms walking home, when she got to her building she had a syncopal event her friend found her on the floor sweating pt doesn't remember much about the fall. Pt was unsure if she was shaking, denied any urinary or fecal incontinence. Pt daughter stated she has had 2 episodes before of falling in the past. Pt was recently started on Dexamethasone for sciatica on day 5, complaining of itching on her right arm. Cardiology was consulted, extensive cardiac workup was done, Echo 60-65% EF, EKG normal, CXR normal, Troponin negative x2, Orthostatic vitals normal, CT chest angio for PE showed no PE, CT head without contrast normal. Multiple previous negative pharmacological stress tests, and myocardial perfusion studies have been negative. Pts chest pain and syncope unlikely cardiac, or pulmonary, other causes can be followed up as outpt. Today pt states her previous symptoms have resolved, clinically asymptomatic denies chest pain. Pt clear to be discharged, pt can follow up with Dr. Bowens in 1 week. - Date & Time of H&P Date of H&P: 08/11/18 Time of H&P: 17:08 Discharge Exam - Head Exam Head Exam: ATRAUMATIC, NORMAL INSPECTION, NORMOCEPHALIC - Eye Exam Eye Exam: EOMI, Normal appearance, PERRL - ENT Exam ENT Exam: Mucous Membranes Moist - Respiratory Exam Respiratory Exam: Clear to PA & Lateral, NORMAL BREATHING PATTERN - Cardiovascular Exam Cardiovascular Exam: RRR, +S1, +S2 - GI/Abdominal Exam GI & Abdominal Exam: Normal Bowel Sounds, Soft - Extremities Exam Extremities exam: normal inspection - Neurological Exam Neurological exam: Alert, Oriented x3 Discharge Plan - Follow Up Plan Condition: GOOD Disposition: HOME/ ROUTINE Patient education suggested?: Yes Instructions: Chest Pain (DC) Additional Instructions: F/u with Dr. Bowens in 1 wk Referrals: Davy Bowens MD [Family Provider] - Guy Andrew MD [Staff Provider] - <Emely Blanco - Last Filed: 08/12/18 18:17> Provider - Provider Date of Admission: 08/11/18 15:56 Attending physician: [facility] Hospital Course - Lab Results Lab Results: Most Recent Lab Values WBC 7.9 K/uL (4.8-10.8) 08/12/18 04:20 RBC 4.58 Mil/uL (3.80-5.20) 08/12/18 04:20 Hgb 12.7 g/dL (12.0-16.0) D 08/12/18 04:20 Hct 37.8 % (34.0-47.0) 08/12/18 04:20 MCV 82.5 fl (81.0-99.0) 08/12/18 04:20 MCH 27.7 pg (27.0-31.0) 08/12/18 04:20 MCHC 33.6 g/dL (33.0-37.0) 08/12/18 04:20 RDW 13.9 % (11.5-14.5) 08/12/18 04:20 Plt Count 234 K/uL (130-400) 08/12/18 04:20 MPV 8.4 fl (7.2-11.7) 08/12/18 04:20 Neut % (Auto) 62.6 % (50.0-75.0) 08/12/18 04:20 Lymph % (Auto) 27.7 % (20.0-40.0) 08/12/18 04:20 [place] % (Auto) 8.7 % (0.0-10.0) 08/12/18 04:20 Eos % (Auto) 0.9 % (0.0-4.0) 08/12/18 04:20 Baso % (Auto) 0.1 % (0.0-2.0) 08/12/18 04:20 Neut # (Auto) 5.0 K/uL (1.8-7.0) 08/12/18 04:20 Lymph # (Auto) 2.2 K/uL (1.0-4.3) 08/12/18 04:20 [place] # (Auto) 0.7 K/uL (0.0-0.8) 08/12/18 04:20 Eos # (Auto) 0.1 K/uL (0.0-0.7) 08/12/18 04:20 Baso # (Auto) 0.0 K/uL (0.0-0.2) 08/12/18 04:20 PT 10.9 Seconds (9.8-13.1) 08/11/18 14:16 INR 1.0 08/11/18 14:16 APTT 21.2 Seconds (25.6-37.1) L 08/11/18 14:16 Sodium 138 mmol/l (132-148) 08/12/18 04:20 Potassium 4.1 MMOL/L (3.6-5.0) 08/12/18 04:20 Chloride 106 mmol/L (98-107) 08/12/18 04:20 Carbon Dioxide 30 mmol/L (22-30) 08/12/18 04:20 Anion Gap 6 (10-20) L 08/12/18 04:20 BUN 19 mg/dl (7-17) H 08/12/18 04:20 Creatinine 1.0 mg/dl (0.7-1.2) 08/12/18 04:20 Est GFR ( Amer) > 60 08/12/18 04:20 Est GFR (Non-Af Amer) 55 08/12/18 04:20 POC Glucose (mg/dL) 128 mg/dL (65-110) H 08/11/18 19:17 Random Glucose 95 mg/dL (65-105) 08/12/18 04:20 Hemoglobin A1c 6.0 % (4.2-6.5) 08/11/18 14:16 Calcium 9.5 mg/dL (8.4-10.2) 08/12/18 04:20 Total Bilirubin 0.6 mg/dl (0.2-1.3) 08/12/18 04:20 AST 22 U/L (14-36) 08/12/18 04:20 ALT 44 U/L (9-52) 08/12/18 04:20 Alkaline Phosphatase 64 U/L (38-126) 08/12/18 04:20 Troponin I < 0.0120 ng/mL (0.00-0.120) 08/11/18 19:48 Total Protein 5.8 G/DL (6.3-8.2) L 08/12/18 04:20 Albumin 3.0 g/dL (3.5-5.0) L D 08/12/18 04:20 Globulin 2.8 gm/dL (2.2-3.9) 08/12/18 04:20 Albumin/Globulin Ratio 1.1 (1.0-2.1) 08/12/18 04:20 Triglycerides 192 mg/DL (0-149) H D 08/11/18 14:16 Cholesterol 186 mg/dL (0-199) 08/11/18 14:16 LDL Cholesterol Direct 96 mg/dL (0-129) 08/11/18 14:16 HDL Cholesterol 66 MG/DL (30-70) 08/11/18 14:16 Free T4 1.32 ng/dL (0.78-2.19) 08/11/18 19:45 TSH 3rd Generation 4.86 mIU/ML (0.46-4.68) H 08/11/18 19:46 Urine Color Yellow (YELLOW) 08/11/18 20:31 Urine Clarity Clear (Clear) 08/11/18 20: Urine pH 6.0 (5.0-8.0) 08/11/18 20: Ur Specific [place] 1.057 (1.003-1.030) H 08/11/18 20: Urine Protein Negative mg/dL (NEGATIVE) 08/11/18 20: Urine Glucose (UA) Neg mg/dL (Normal) 08/11/18 20: Urine Ketones Negative mg/dL (NEGATIVE) 08/11/18 20: Urine Blood Negative (NEGATIVE) 08/11/18 20: Urine Nitrate Negative (NEGATIVE) 08/11/18 20: Urine Bilirubin Negative (NEGATIVE) 08/11/18 20: Urine Urobilinogen 0.2-1.0 mg/dL (0.2-1.0) 08/11/18 20:31 Ur Leukocyte Esterase Neg Jeancarlos/uL (Negative) 08/11/18 20: Urine RBC (Auto) 1 /hpf (0-3) 08/11/18 20: Urine Microscopic WBC 1 /hpf (0-5) 08/11/18 20:31 Ur Squamous Epith Cells < 1 /hpf (0-5) 08/11/18 20: Blood Type O NEGATIVE 08/11/18:18 Antibody Screen Negative 08/11/18: BBK History Checked Patient has bt 08/11/18 14:18 Attending/Attestation - Attestation I have personally seen and examined this patient.: Yes I have fully participated in the care of the patient.: Yes I have reviewed all pertinent clinical information, including history, physical exam and plan: Yes Notes (Text): Syncope unclear etiology, needs further work up as outpt may be sec to dehydration - work up negative so far - Trop negative, CT of head neg, CTA ruled out PE - Cardiology - Dr Andrew consulted - pt had been worked up previously after a similar event last year - Holter: neg , Myocardial Perfusion scan : negative , EEG : negative - ff up with Cardio and Neurology as outpt for further work up
--- NOTE | 2018-08-12 11:11 | CP.PCM.CON ---
History of Present Illness - History of Present Illness History of Present Illness: I WAS ASKED TO SEE THIS 67 YEAR OLD FEMALE WHO I SEE IN MY OFFICE FOR HYPERTENSION. SHE ALSO HAS ATYPICAL CHEST PAINS WIDTH MULTIPLE NEGATIVE PHARMACOLOGICAL STRESS TESTS AND PALPITATIONS WITH BENIGN EKGS AND HOLTER MONITORS. SHE NOW CLAIMS THAT SHE HAS SCIATICA AND AN MRI SHOWED L-S DISC HERNIATION AND SHE WAS GIVEN DEXAMETHAZONE BY A NEUROLOGIST FOR FIVE DAYS AND SHE STARTED FEELING WEAKNESS, CHEST DISCOMFORT, SOB, RIGHT ARM ITCHINESS AND WASN'T THINKING NORMALLY AND HAD A NEAR-SYNCOPAL OR SYNCOPAL EPISODE BUT SHE ISN'T SURE. SHE PRESENTED TO THE ER AND WAS ADMITTED TO OBSERVATION. TODAY SHE DENIES CHEST PAIN OR PALPITATIONS AND IS BREATHING WELL. Past Patient History - Infectious Disease Hx of Infectious Diseases: None - Past Medical History & Family History Past Medical History?: Yes - Past Social History Smoking Status: Never Smoked - CARDIAC Hx Congestive Heart Failure: No Hx Hypercholesterolemia: Yes Hx Hypertension: Yes - PULMONARY Hx Asthma: Yes Hx Chronic Obstructive Pulmonary Disease (COPD): Yes (Due to second hand smoke) Hx Emphysema: Yes (Due to second hand smoke) Hx Sleep Apnea: Yes - NEUROLOGICAL Hx Neurological Disorder: Yes Hx Vertigo: Yes - HEENT Hx HEENT Problems: No - RENAL Hx Chronic Kidney Disease: No - ENDOCRINE/METABOLIC Hx Hypothyroidism: No - HEMATOLOGICAL/ONCOLOGICAL Hx Blood Disorders: No - INTEGUMENTARY Hx Dermatological Problems: No Other/Comment: Lump and mole removed from the back. - MUSCULOSKELETAL/RHEUMATOLOGICAL Hx Arthritis: No Hx Falls: Yes Hx Rheumatoid Arthritis: No - GASTROINTESTINAL Hx Gastrointestinal Disorders: No - GENITOURINARY/GYNECOLOGICAL Hx Genitourinary Disorders: No Other/Comment: Hysterectomy. - PSYCHIATRIC Hx Psychophysiologic Disorder: No Hx Emotional Abuse: No Hx Physical Abuse: No Hx Substance Use: No - SURGICAL HISTORY Hx Cholecystectomy: Yes - ANESTHESIA Hx Anesthesia: Yes Hx Anesthesia Reactions: No Hx Malignant Hyperthermia: No Meds Allergies/Adverse Reactions: Allergies Allergy/AdvReac Type Severity Reaction Status Date / Time dexamethasone Allergy RASH Verified 08/11/18 12:45 - Medications Medications: Current Medications Acetaminophen (Tylenol 325mg Tab) 650 mg PO Q6 PRN PRN Reason: Pain, Mild (1-3) Acetaminophen (Tylenol 325mg Tab) 650 mg PO Q6 PRN PRN Reason: Fever >100.4 F Atorvastatin Calcium (Lipitor) 20 mg PO HS HAIR Enoxaparin Sodium (Lovenox) 40 mg SC DAILY [facility]; Protocol Last Admin: 08/12/18 08:46 Dose: 40 mg Gabapentin (Neurontin) 100 mg PO Q8 [facility] Last Admin: 08/12/18 08:45 Dose: 100 mg Hydrochlorothiazide (Hydrodiuril) 25 mg PO DAILY [facility] Last Admin: 08/12/18 08:44 Dose: 25 mg Sodium Chloride (Sodium Chloride 0.9%) 1,000 mls @ 100 mls/hr IV .Q10H [facility] Last Admin: 08/12/18 08:43 Dose: 100 mls/hr Losartan Potassium (Cozaar) 100 mg PO DAILY [facility] Last Admin: 08/12/18 08:44 Dose: 100 mg Physical Exam - Respiratory Exam Respiratory Exam: Clear to Auscultation Bilateral - Cardiovascular Exam Cardiovascular Exam: REGULAR RHYTHM, +S1, +S2 - Extremities Exam Extremities exam: Positive for: normal inspection - Additional Findings Additional findings: EKG SINUS RHYTHM, NO ACUTE CHANGES ICU RN SHOWS SINUS RHYTHM WITHOUT ANY PAUSES OR HIGH DEGREE BLOCKS TROPONINS ARE NORMAL Results - Vital Signs Recent Vital Signs: Last Vital Signs Temp 98.0 F 08/12/18 08:00 Pulse 110 H 08/12/18 09:00 Resp 20 08/12/18 08:00 BP 129/78 08/12/18 08:44 Pulse Ox 98 08/12/18 08:00 - Labs Result Diagrams: 08/12/18 04:20 08/12/18 04:20 Labs: Laboratory Results - last 24 hr 08/11/18 08/11/18 08/11/18 12:56 14:16 14:16 WBC 14.8 H D RBC 5.49 H Hgb 15.0 Hct 45.3 MCV 82.5 MCH 27.2 MCHC 33.0 RDW 14.1 Plt Count 267 MPV 8.5 Neut % (Auto) 78.5 H Lymph % (Auto) 13.0 L [place] % (Auto) 7.9 Eos % (Auto) 0.3 Baso % (Auto) 0.3 Neut # (Auto) 11.7 H Lymph # (Auto) 1.9 [place] # (Auto) 1.2 H Eos # (Auto) 0.0 Baso # (Auto) 0.0 PT INR APTT Sodium 135 Potassium 3.9 Chloride 99 Carbon Dioxide 30 Anion Gap 10 BUN 20 H Creatinine 1.0 Est GFR ( Amer) > 60 Est GFR (Non-Af Amer) 55 POC Glucose (mg/dL) 105 Random Glucose 97 Hemoglobin A1c Calcium 10.6 H Total Bilirubin 0.9 AST 54 H D ALT 46 Alkaline Phosphatase 80 Troponin I < 0.0120 Total Protein 7.8 Albumin 3.9 Globulin 3.9 Albumin/Globulin Ratio 1.0 Triglycerides 192 H D Cholesterol 186 LDL Cholesterol Direct 96 HDL Cholesterol 66 Free T4 TSH 3rd Generation Urine Color Urine Clarity Urine pH Ur Specific [place] Urine Protein Urine Glucose (UA) Urine Ketones Urine Blood Urine Nitrate Urine Bilirubin Urine Urobilinogen Ur Leukocyte Esterase Urine RBC (Auto) Urine Microscopic WBC Ur Squamous Epith Cells Blood Type Antibody Screen BBK History Checked 08/11/18 08/11/18 08/11/18 14:16 14:16 14:18 WBC RBC Hgb Hct MCV MCH MCHC RDW Plt Count MPV Neut % (Auto) Lymph % (Auto) [place] % (Auto) Eos % (Auto) Baso % (Auto) Neut # (Auto) Lymph # (Auto) [place] # (Auto) Eos # (Auto) Baso # (Auto) PT 10.9 INR 1.0 APTT 21.2 L Sodium Potassium Chloride Carbon Dioxide Anion Gap BUN Creatinine Est GFR ( Amer) Est GFR (Non-Af Amer) POC Glucose (mg/dL) Random Glucose Hemoglobin A1c 6.0 Calcium Total Bilirubin AST ALT Alkaline Phosphatase Troponin I Total Protein Albumin Globulin Albumin/Globulin Ratio Triglycerides Cholesterol LDL Cholesterol Direct HDL Cholesterol Free T4 TSH 3rd Generation Urine Color Urine Clarity Urine pH Ur Specific [place] Urine Protein Urine Glucose (UA) Urine Ketones Urine Blood Urine Nitrate Urine Bilirubin Urine Urobilinogen Ur Leukocyte Esterase Urine RBC (Auto) Urine Microscopic WBC Ur Squamous Epith Cells Blood Type O NEGATIVE Antibody Screen Negative BBK History Checked Patient has bt 08/11/18 08/11/18 08/11/18 19:17 19:45 19:46 WBC RBC Hgb Hct MCV MCH MCHC RDW Plt Count MPV Neut % (Auto) Lymph % (Auto) [place] % (Auto) Eos % (Auto) Baso % (Auto) Neut # (Auto) Lymph # (Auto) [place] # (Auto) Eos # (Auto) Baso # (Auto) PT INR APTT Sodium Potassium Chloride Carbon Dioxide Anion Gap BUN Creatinine Est GFR ( Amer) Est GFR (Non-Af Amer) POC Glucose (mg/dL) 128 H Random Glucose Hemoglobin A1c Calcium Total Bilirubin AST ALT Alkaline Phosphatase Troponin I Total Protein Albumin Globulin Albumin/Globulin Ratio Triglycerides Cholesterol LDL Cholesterol Direct HDL Cholesterol Free T4 1.32 TSH 3rd Generation 4.86 H Urine Color Urine Clarity Urine pH Ur Specific [place] Urine Protein Urine Glucose (UA) Urine Ketones Urine Blood Urine Nitrate Urine Bilirubin Urine Urobilinogen Ur Leukocyte Esterase Urine RBC (Auto) Urine Microscopic WBC Ur Squamous Epith Cells Blood Type Antibody Screen BBK History Checked 08/11/18 08/11/18 08/12/18 19:48 20:31 04:20 WBC 7.9 RBC 4.58 Hgb 12.7 D Hct 37.8 MCV 82.5 MCH 27.7 MCHC 33.6 RDW 13.9 Plt Count 234 MPV 8.4 Neut % (Auto) 62.6 Lymph % (Auto) 27.7 [place] % (Auto) 8.7 Eos % (Auto) 0.9 Baso % (Auto) 0.1 Neut # (Auto) 5.0 Lymph # (Auto) 2.2 [place] # (Auto) 0.7 Eos # (Auto) 0.1 Baso # (Auto) 0.0 PT INR APTT Sodium Potassium Chloride Carbon Dioxide Anion Gap BUN Creatinine Est GFR ( Amer) Est GFR (Non-Af Amer) POC Glucose (mg/dL) Random Glucose Hemoglobin A1c Calcium Total Bilirubin AST ALT Alkaline Phosphatase Troponin I < 0.0120 Total Protein Albumin Globulin Albumin/Globulin Ratio Triglycerides Cholesterol LDL Cholesterol Direct HDL Cholesterol Free T4 TSH 3rd Generation Urine Color Yellow Urine Clarity Clear Urine pH 6.0 Ur Specific [place] 1.057 H Urine Protein Negative Urine Glucose (UA) Neg Urine Ketones Negative Urine Blood Negative Urine Nitrate Negative Urine Bilirubin Negative Urine Urobilinogen 0.2-1.0 Ur Leukocyte Esterase Neg Urine RBC (Auto) 1 Urine Microscopic WBC 1 Ur Squamous Epith Cells < 1 Blood Type Antibody Screen BBK History Checked 08/12/18 04:20 WBC RBC Hgb Hct MCV MCH MCHC RDW Plt Count MPV Neut % (Auto) Lymph % (Auto) [place] % (Auto) Eos % (Auto) Baso % (Auto) Neut # (Auto) Lymph # (Auto) [place] # (Auto) Eos # (Auto) Baso # (Auto) PT INR APTT Sodium 138 Potassium 4.1 Chloride 106 Carbon Dioxide 30 Anion Gap 6 L BUN 19 H Creatinine 1.0 Est GFR ( Amer) > 60 Est GFR (Non-Af Amer) 55 POC Glucose (mg/dL) Random Glucose 95 Hemoglobin A1c Calcium 9.5 Total Bilirubin 0.6 AST 22 ALT 44 Alkaline Phosphatase 64 Troponin I Total Protein 5.8 L Albumin 3.0 L D Globulin 2.8 Albumin/Globulin Ratio 1.1 Triglycerides Cholesterol LDL Cholesterol Direct HDL Cholesterol Free T4 TSH 3rd Generation Urine Color Urine Clarity Urine pH Ur Specific [place] Urine Protein Urine Glucose (UA) Urine Ketones Urine Blood Urine Nitrate Urine Bilirubin Urine Urobilinogen Ur Leukocyte Esterase Urine RBC (Auto) Urine Microscopic WBC Ur Squamous Epith Cells Blood Type Antibody Screen BBK History Checked Assessment & Plan - Assessment and Plan (Free Text) Assessment: PROBABLE SIDE EFFECTS TO DEXAMETHAZONE STABLE CARDIAC STATUS HYPERTENSION Plan: THE PATIENT WAS ADMITTED TO 4N ON TELEMETRY LOSARTAN, HCTZ, ATORVASTATIN AND LOVENOX WERE ORDERED NO FURTHER CARDIAC GUILLERMO IS NEEDED AT THE PRESENT TIME
--- NOTE | 2018-08-12 11:51 | CARD ---
APPROVED REPORT Date of service: 08/12/2018 EXAM: Two-dimensional and M-mode echocardiogram with Doppler and color Doppler. Other Information Quality : GoodRhythm : NSR INDICATION Chest Pain Syncope 2D DIMENSIONS IVSd0.74 (0.7-1.1cm)LVDd4.34 (3.9-5.9cm) LVOT Diameter2.06 (1.8-2.4cm)PWd0.81 (0.7-1.1cm) IVSs0.97 (0.8-1.2cm)LVDs2.95 (2.5-4.0cm) FS (%) 32.1 %PWs1.37 (0.8-1.2cm) M-Mode DIMENSIONS Left Atrium (MM)2.78 (2.5-4.0cm)IVSd0.72 (0.7-1.1cm) Aortic Root2.90 (2.2-3.7cm)LVDd4.91 (4.0-5.6cm) Aortic Cusp Exc.1.96 (1.5-2.0cm)PWd0.77 (0.7-1.1cm) IVSs1.38 cmFS (%) 42 % LVDs2.84 (2.0-3.8cm)PWs1.32 cm Aortic Valve AoV Peak Pveonyjx930.2cm/sAoV VTI33.8cmAO Peak GR.11mmHg LVOT Peak Hjzqcrws304.6cm/sLVOT VTI22.93cmAO Mean GR.6mmHg ALBERTO (VMAX)1.37xo3NLZ (VTI)1.11cm2 Mitral Valve MV E Wcftlyrn24.6cm/sMV DECEL [id number] A Bzjldlpd30.1cm/s MV RTX13ywX/A ratio0.8MVA (PHT)3.77cm2 TDI Lateral E' Peak V10.51cm/sMedial E' Peak V9.94cm/sE/Lateral E'6.8 E/Medial E'7.2 LEFT VENTRICLE The left ventricle is normal size. There is normal left ventricular wall thickness. The left ventricular systolic function is normal. The estimated ejection fraction is 60-65% No regional wall motion abnormalities noted.. Transmitral Doppler flow pattern is Grade I-abnormal relaxation pattern. No left ventricle thrombus noted on this study. There is no ventricular septal defect visualized. There is no left ventricular aneurysm. There is no mass noted in the left ventricle. RIGHT VENTRICLE The right ventricle is normal size. There is normal right ventricular wall thickness. The right ventricular systolic function is normal. ATRIA The left atrium size is normal. The right atrium size is normal. The interatrial septum is intact with no evidence for an atrial septal defect. AORTIC VALVE The aortic valve is normal in structure. No aortic regurgitation is present. There is no aortic valvular stenosis. There is no aortic valvular vegetation. MITRAL VALVE The mitral valve is normal in structure. There is no evidence of mitral valve prolapse. There is no mitral valve stenosis. There is no mitral valve regurgitation noted. TRICUSPID VALVE The tricuspid valve is normal in structure. There is trace tricuspid valve regurgitation noted. There is no tricuspid valve prolapse or vegetation. There is no tricuspid valve stenosis. PULMONIC VALVE The pulmonary valve is normal in structure. There is no pulmonic valvular regurgitation. There is no pulmonic valvular stenosis. GREAT VESSELS The aortic root is normal in size. The ascending aorta is normal in size. The pulmonary artery is normal. The IVC is normal in size and collapses >50% with inspiration. PERICARDIAL EFFUSION There is no pericardial effusion. There is no pleural effusion. <Conclusion> The estimated ejection fraction is 60-65% Transmitral Doppler flow pattern is Grade I-abnormal relaxation pattern. The left atrium size is normal. There is trace tricuspid valve regurgitation noted.
[2018-08-12 12:42] VITALS: BP 129/73; PULSE 58; TEMP 97.9; O2SAT 99
== END 2018-08-12 14:41 | disposition home or self-care (01) ==
LOC: H.ER 12:38 → H.ERHOLD 15:56 → H.TEL 22:12
PROVIDERS: ADMIT Hospitalist; ATTEND Hospitalist
DX: R07.9 Chest pain, unspecified (principal); R42 Dizziness and giddiness; R55 Syncope and collapse; J43.9 Emphysema, unspecified; I10 Essential (primary) hypertension; E78.00 Pure hypercholesterolemia, unspecified; E78.5 Hyperlipidemia, unspecified; D72.829 Elevated white blood cell count, unspecified; M79.605 Pain in left leg; M79.604 Pain in right leg; M51.17 Intervertebral disc disorders with radiculopathy, lumbosacral region; G47.30 Sleep apnea, unspecified; Z23 Encounter for immunization; G62.9 Polyneuropathy, unspecified; G89.29 Other chronic pain
CPT/HCPCS: 36415; 70450; 71045; 71275; 80053; 80061; 81003; 82948; 83036; 84439; 84443; 84484; 85025; 85610; 85730; 86850; 86900; 90732; 93005; 93306; 96360; 97161; 99285; G0008; G0009; G0378; G8978; G8979; G8980; J1650; J7030; Q2035; Q9967

== ENCOUNTER 2019-01-16 11:53 | Emergency (ER) | payer MEDICARE ==
[2019-01-16 12:23] VITALS: BMI 25.7
[2019-01-16] MEDS ORDERED: Albuterol-Ipratrop 3 mg / 0.5 (3 ml) UD IH STA (12:24)
[2019-01-16] MEDS ORDERED: Albuterol-Ipratrop 3 mg / 0.5 (3 ml) UD INH STA (12:24)
[2019-01-16] MEDS ORDERED: Sodium Chloride 0.9% 500 ML IV STA (12:24)
--- NOTE | 2019-01-16 12:29 | ED PDOC ---
HPI: SOB/CHF/COPD Time Seen by Provider: 01/16/19 12:11 Chief Complaint (Provider): Chest Tightness, Shortness of Breath History Per: Patient History/Exam Limitations: no limitations Onset/Duration Of Symptoms: Days (x5) Current Symptoms Are (Timing): Still Present Additional Complaint(s): 68 year old female presents to the ED for evaluation of chest tightness associated with shortness of breath onset five days ago, similar to previous episodes of COPD exacerbation. At onset, patient took her Symbicort, but symptoms persisted along with the development of a dry cough, fever, night sweats, throat pain, body aches, and chills throughout the week. This morning, she notes having some palpitations which prompted her to come in for evaluation. Otherwise, denies runny nose, nausea, vomiting, headache, abdominal pain, and other symptoms. PMD: Gogo Past Medical History Reviewed: Historical Data, Nursing Documentation, Vital Signs - Medical History PMH: Asthma, Back Problems, COPD (Due to second hand smoke), Emphysema (Due to second hand smoke), HTN, Hypercholesterolemia, Kidney Stones, Sleep Apnea, Chronic Pain Denies: Arthritis, CHF, Hypothyroidism, Chronic Kidney Disease, Rheumatoid Arthritis Other PMH: Vertigo - Surgical History Surgical History: Cholecystectomy - Family History Family History: States: Unknown Family Hx - Home Medications Home Medications: Ambulatory Orders Medication Instructions Recorded Albuterol Sulfate [Ventolin Hfa] 2 puff IH Q6 PRN 08/11/18 Albuterol/Ipratropium [Duoneb 3 3 ml IH Q4 PRN 08/11/18 mg/0.5 mg (3 ml) UD] Budesonide/Formoterol Fumarate 2 puff IH Q12 08/11/18 [Symbicort 160-4.5 Mcg Inhaler] Cyanocobalamin [Vitamin B12 1000 1 tab PO DAILY 08/11/18 mcg Tab] Dexlansoprazole [Dexilant] 60 mg PO Q48H 08/11/18 Ergocalciferol (Vitamin D2) 50,000 unit PO SAT 08/11/18 [Vitamin D2] Gabapentin [Neurontin] 100 mg PO Q8 08/11/18 Losartan/Hydrochlorothiazide 1 tab PO DAILY 08/11/18 [Hyzaar 100-25 Tablet] Simvastatin [Zocor] 20 mg PO HS 08/11/18 Umeclidinium Mclean [Incruse 1 puff IH DAILY 08/11/18 Ellipta] Albuterol Sulfate [Proair Hfa] 0.09 mg IH Q6H PRN #2 inh 01/16/19 predniSONE [predniSONE Tab] 20 mg PO BID 5 Days tab 01/16/19 - Allergies Allergies/Adverse Reactions: Allergies Allergy/AdvReac Type Severity Reaction Status Date / Time dexamethasone Allergy RASH Verified 08/11/18 12:45 Review of Systems ROS Statement: Except As Marked, All Systems Reviewed And Found Negative Constitutional: Positive for: Fever, Chills, Sweats, Other (body aches) ENT: Positive for: Throat Pain. Negative for: Nose Discharge Cardiovascular: Positive for: Palpitations, Other (chest tightness) Respiratory: Positive for: Cough (dry), Shortness of Breath Gastrointestinal: Negative for: Nausea, Vomiting, Abdominal Pain Neurological: Negative for: Headache Physical Exam - Reviewed Nursing Documentation Reviewed: Yes Vital Signs Reviewed: Yes - Physical Exam Appears: Positive for: No Acute Distress Head Exam: Positive for: ATRAUMATIC, NORMOCEPHALIC Skin: Positive for: Normal Color, Warm, Dry. Negative for: Rash Eye Exam: Positive for: Normal appearance ENT: Positive for: Normal ENT Inspection. Negative for: Pharyngeal Erythema, Tonsillar Exudate, Tonsillar Swelling Neck: Positive for: Normal, Painless ROM, Supple Cardiovascular/Chest: Positive for: Regular Rate, Rhythm Respiratory: Positive for: Decreased Breath Sounds (bilaterally). Negative for: Respiratory Distress Gastrointestinal/Abdominal: Positive for: Normal Exam, Soft. Negative for: Tenderness Back: Positive for: Normal Inspection Extremity: Positive for: Normal ROM. Negative for: Swelling (to bilateral lower extremities) Neurological/Psych: Positive for: Awake, Alert, Oriented (x3) - Laboratory Results Result Diagrams: 01/16/19 13:13 01/16/19 13:13 Lab Results: no acute Interpretation Of Abn Labs: no acute - ECG ECG: Positive for: Interpreted By Me, Viewed By Me ECG Rhythm: Positive for: Normal QRS, Normal ST Segment, Sinus Rhythm - Radiology X-Ray: Read By Radiologist X-Ray Interpretation: No Acute Disease - Progress ED Course And Treament: 1520: Stable. AAOx3. Pain free. Tolerated PO. Will dc with steroids and albuterol. Medical Decision Making Medical Decision Making: Time: 1223 Impression: chest tightness and shortness of breath in setting of known COPD Initial Plan: --EKG --BNP --CMP --Trop I --CBC with differential --CXR --Duoneb 3ml INH x2 --Normal saline IV --SOLU-medrol 125mg IVP --Toradol 15mg IVP --Peak flow pre/post --Reevaluation Scribe Attestation: Documented by Ivis Balbuena, acting as a scribe for Arie Dominguez MD. Provider Scribe Attestation: All medical record entries made by the Scribe were at my direction and personally dictated by me. I have reviewed the chart and agree that the record accurately reflects my personal performance of the history, physical exam, medical decision making, and the department course for this patient. I have also personally directed, reviewed, and agree with the discharge instructions and disposition. Disposition - Clinical Impression Clinical Impression: COPD exacerbation - Patient ED Disposition Is Patient to be Admitted: No Counseled Patient/Family Regarding: Studies Performed, Diagnosis, Need For Followup, Rx Given - Disposition Referrals: [facility] [Outside] - 01/18/19 Disposition: Routine/Home Disposition Time: 15:21 Condition: STABLE Additional Instructions: Return if not better in 3 days. Prescriptions: Albuterol Sulfate [Proair Hfa] 0.09 mg IH Q6H PRN #2 inh PRN Reason: Wheezing predniSONE [predniSONE Tab] 20 mg PO BID 5 Days tab Instructions: Exacerbation of COPD Forms: [employer] (Emirati), [facility] ED School/Work Excuse
[2019-01-16] MEDS ORDERED: Albuterol-Ipratrop 3 mg / 0.5 (3 ml) UD ONE (13:04)
[2019-01-16 13:17] LABS: BASO % 0.8 % (0.0-2.0); EOS % 0.7 % (0.0-4.0); HEMOGLOBIN 14.2 g/dL (12.0-16.0); LYMPH # 0.9 K/uL (1.0-4.3); LYMPH % 14.4 % (20.0-40.0); MEAN CELL VOLUME 82.9 fl (81.0-99.0); MEAN CORPUSCULAR HEMOGLOBIN 27.5 pg (27.0-31.0); MEAN CORPUSCULAR HGB CONC 33.1 g/dL (33.0-37.0); MEAN PLATELET VOLUME 8.6 fl (7.2-11.7); MONO # 0.9 K/uL (0.0-0.8); MONO % 14.9 % (0.0-10.0); NEUT # 4.2 K/uL (1.8-7.0); NEUT % 69.2 % (50.0-75.0); NRBC % 0.1 % (0.0-0.0); RBC 5.18 Mil/uL (3.80-5.20); RED CELL DISTRIBUTION WIDTH 14.1 % (11.5-14.5); WHITE BLOOD COUNT 6.1 K/uL (4.8-10.8)
[2019-01-16 13:30] LABS: ALB/GLOB RATIO 1.2 (1.0-2.1); ALBUMIN 4.2 g/dL (3.5-5.0); ALT/SGPT 37 U/L (9-52); AST/SGOT 46 U/L (14-36); BLOOD UREA NITROGEN 13 mg/dl (7-17); CALCIUM 10.7 mg/dL (8.4-10.2); GFR NON-AFRICAN AMERICAN > 60
[2019-01-16 13:42] LABS: B-TYPE NATRIURETIC PEPTIDE 49.3 pg/ml (0-900)
--- NOTE | 2019-01-16 15:10 | RAD ---
Date of service: 01/16/2019 HISTORY: Dyspnea COMPARISON: Comparison chest 08/11/2018 TECHNIQUE: 1 view obtained. FINDINGS: LUNGS: Mild hyperinflation; rule out underlying changes of COPD. Suspect mild biapical pleural thickening. No acute consolidation. PLEURA: No significant pleural effusion identified, no pneumothorax apparent. CARDIOVASCULAR: No aortic atherosclerotic calcification present. Normal cardiac size. No pulmonary vascular congestion. OSSEOUS STRUCTURES: Minor multilevel degenerative spondylosis of the thoracic spine VISUALIZED UPPER ABDOMEN: Normal. OTHER FINDINGS: None. IMPRESSION: Mild hyperinflation; rule out underlying changes of COPD. Suspect mild biapical pleural thickening. No acute consolidation.
[2019-01-16 17:49] VITALS: BP 149/87; PULSE 96; RESP 16; TEMP 98.2; O2SAT 99
--- NOTE | 2019-01-17 16:58 | CARD ---
APPROVED REPORT Date of service: 01/16/2019 EKG Measurement Heart [id number] <Conclusion> Normal sinus rhythm Possible Left atrial enlargement Otherwise normal ECG
== END 2019-01-16 15:50 | disposition home or self-care (01) ==
LOC: H.ER 11:53
DX: J44.1 Chronic obstructive pulmonary disease with (acute) exacerbation (principal); I10 Essential (primary) hypertension; G89.29 Other chronic pain; Z87.442 Personal history of urinary calculi; Z79.899 Other long term (current) drug therapy
CPT/HCPCS: 71045; 80053; 83880; 84484; 85025; 93005; 96374; 96375; 99283; J1885; J2930; J7040